=== PATIENT | female | born 1970 | race Caucasian/White ===

== ENCOUNTER 2020-07-01 06:39 | Emergency (ER) | payer BC ==
[~2020-07-01] VITALS: Ht 160 cm; Wt 87.5 kg
[2020-07-01] MEDS ORDERED: LISINOPRIL-HCT1 EAC2 PO (07:00)
[2020-07-01] MEDS ORDERED: NP THYROID60 MG PO (07:00)
[2020-07-01] MEDS ORDERED: PRILOSEC OTC20 MG PO (07:00)
[2020-07-01] MEDS ORDERED: SINGULAIR10 MG PO (07:00)
[2020-07-01] MEDS ORDERED: PLAQUENIL200 MG PO (07:00)
[2020-07-01] MEDS ORDERED: ZOLOFT100 MG PO (07:00)
[2020-07-01] MEDS ORDERED: DEXAMETHASONE SOD PHOS 10 MG/1 ML VIAL IM ONE (07:15)
[2020-07-01] MEDS ORDERED: KETOROLAC TROMETHAMINE 60 MG/2 ML VIAL IM ONE (07:15)
== END 2020-07-01 07:58 | disposition home or self-care (01) ==
LOC: ER 07:51
DX: R20.0 Anesthesia of skin (principal); M54.12 Radiculopathy, cervical region
CPT/HCPCS: 99283; J1100; J1885